=== PATIENT | female | born 1985 | race Caucasian/White ===

== ENCOUNTER 2022-03-06 06:29 | Outpatient (CLI) | payer OTHER, SELFPAY ==
[2022-03-13 17:33] LABS: HPV APTIMA, High Risk Negative (Negative)
== END 2022-03-06 23:59 | disposition home or self-care (01) ==
LOC: LABSPEC 03-07 06:29
PROVIDERS: PCP Student in an Organized Health Care Education/Training Program; Referring Provider Nurse Practitioner Women's Health; Visit Provider Nurse Practitioner Women's Health
DX: Z12.4 Encounter for screening for malignant neoplasm of cervix (principal)
CPT/HCPCS: 87624; 88175; G0145